=== PATIENT | male | born 1965 | race Caucasian/White ===

== ENCOUNTER 2016-06-23 11:21 | Emergency (ER) ==
[2016-06-23 11:35] VITALS: BP 130/76
[2016-06-23] MEDS ORDERED: DECADRON IM ONE (11:47)
[2016-06-23] MEDS ORDERED: NORFLEX IM ONE (11:48)
--- NOTE | 2016-06-23 11:53 | PROVIDER DOCUMENTATION ---
HPI-Musculoskeletal Pain/Inj - GENERAL Chief Complaint: Back Pain Stated Complaint: BACK PAIN Time Seen by Provider: 06/23/16 11:42 Source: patient - HX OF PRESENT ILLNESS-MUSKULOSKELTAL Nature of Presenting Problem: PATIENT REPORTS ONSET OF LUMBAR BACK PAIN X2 DAYS WHILE AT WORK. 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 PAIN IS NONRADIATING, DENIES ANY BOWEL OR BLADDER INCONTINENCE. DENIES FEVER. DENIES ANY TRAUMATIC INJURY. Quality of Pain: reports: aching, throbbing Severity in ED: moderate Onset/Duration: 2 days ago Timing: still present Modifying Factors: improves with: nothing Any recent injury?: No Locality of Occurance: Work Similar Symptoms Previously?: No Recently seen or treated by another doctor?: No - BACK & NECK PAIN/INJURY Back/Neck Pain Location: reports: lumbar spine Back/Neck Pain Radiation: denies: headache, shoulders, arm(s), Buttocks, Upper Legs, Lower Legs, Feet, Other Context / Method of Injury: reports: twisted Associated Symptoms: reports: denies symptoms History of Chronic Neck or Back Pain?: No Review of Systems - Adult - REVIEW OF SYSTEMS - ADULT Constitutional: reports: no symptoms reported Eyes: reports: no symptoms reported Ears, Nose, Mouth & Throat: reports: no symptoms reported Cardiovascular: reports: no symptoms reported Respiratory: reports: no symptoms reported Gastrointestinal: reports: no symptoms reported Genitourinary: reports: no symptoms reported Musculoskeletal: reports: see HPI Integumentary: reports: no symptoms reported Neurological: reports: no symptoms reported Psychiatric: reports: no symptoms reported Endocrine: reports: no symptoms reported Hematologic/Lymphatic: reports: no symptoms reported Allergic/Immunologic: reports: no symptoms reported Past History - Adult - PAST MEDICAL HISTORY-ADULT Review of Records: reports: Nursing Assessment Review, Medications Reviewed, Social history reviewed & non-contributory. 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 negative: muscle spasm, swelling Extremity: normal range of motion, normal gait Neurologic: grossly normal, no motor/sensory deficits Psych/Mental Status: normal mood/affect, normal thought content, normal thought process, oriented x 3 - Glascow Coma Score Best Eye Response ([place]): (4) open spontaneously Best Verbal Response ([place]): (5) oriented Best Motor Response ([place]): (6) obeys commands Departure - Departure Time of Disposition Order: 11:53 DIAGNOSIS: Lumbago without sciatica Disposition: HOME 01 Certified Medical Emergency: Emergent Condition: Good Additional Instructions: APPLY MOIST HEAT TO LOWER BACK AREA, BUT CAREFUL NOT TO BURN SKIN. TYLENOL OVER THE COUNTER FOR PAIN. MUSCLE RELAXERS MAY CAUSE DROWSINESS, DO NOT DRINK ALCOHOL OR DRIVE WHILE TAKING THIS MEDICATION. Prescriptions: Methocarbamol [Robaxin-750] 750 mg PO TID #15 tablet Forms: Return to School/Parent Work Attestation - Physician/ LALITO Attestation Patient care was provided by Advanced Practice Provider:: Yes Advanced Practice Provider:: Tyson Warren Advanced Practice Provider documentation review:: The Mid-level provider documentation, treatment plan and medical decision making was reviewed by the physician who agrees with all treatment and medical decision making by the MLP.
== END 2016-06-23 12:13 | disposition home or self-care (01) ==
LOC: P.ED 11:21
DX: M54.5 Low back pain (principal); X58.XXXA Exposure to other specified factors, initial encounter
CPT/HCPCS: J2360

== ENCOUNTER 2016-06-24 16:11 | Emergency (ER) ==
--- NOTE | 2016-06-24 17:08 | PROVIDER DOCUMENTATION ---
HPI-Musculoskeletal Pain/Inj - GENERAL Chief Complaint: Extremity Pain Stated Complaint: LEFT LEG PAIN Time Seen by Provider: 06/24/16 16:26 Source: patient - HX OF PRESENT ILLNESS-MUSKULOSKELTAL Nature of Presenting Problem: 50 y/o WM c/o LLE pain x 1 day. Pt states that he was seen yesterday for low back pain and was given steroids and muscle relaxer in the ED with Rx for robaxin. States that back feels better today, but states pain radiating to LLE ; started in posterior thigh, now pain in calf. States some muscle cramping. Reports hx of kidney CA 4 years ago and only has one kidney. Denies any other sxs. States period of inactivity over last week due to back pain. Review of Systems - Adult - REVIEW OF SYSTEMS - ADULT Constitutional: reports: no symptoms reported. denies: chills, fever Eyes: reports: no symptoms reported. denies: blurred vision, double vision Ears, Nose, Mouth & Throat: reports: no symptoms reported. denies: ear pain, nose pain Cardiovascular: reports: no symptoms reported. denies: chest pain, palpitations Respiratory: reports: no symptoms reported. denies: dyspnea on exertion, shortness of breath Gastrointestinal: reports: no symptoms reported. denies: abdominal pain, nausea , vomiting Genitourinary: reports: no symptoms reported. denies: dysuria, frequency Musculoskeletal: reports: see HPI, frequent leg cramps, muscle aches. denies: back pain, joint pain, joint swelling, neck pain Integumentary: reports: no symptoms reported. denies: nail changes, rash Neurological: reports: no symptoms reported. denies: numbness, paresthesia Psychiatric: reports: no symptoms reported Endocrine: reports: no symptoms reported. denies: cold intolerance, heat intolerance Hematologic/Lymphatic: reports: no symptoms reported. denies: easy bruising, prolonged bleeding Allergic/Immunologic: reports: no symptoms reported All Other Systems: Reviewed and Negative Past History - Adult - PAST MEDICAL HISTORY-ADULT Review of Records: reports: Nursing Assessment Review, Medications Reviewed Genitourinary: reports: cancer Endocrine/Immune: reports: Diabetes (DIET CONTROLLED) - PRIOR SURGERIES/PROCEDURES Surgical/Procedure History: reports: other (kidney removal) - SOCIAL HISTORY Smoking: cigarettes, less than 1 pack/day Provider spent 3-5 mins advising pt. on dangers of tobacco.: Discussed manners to quit use, and f/u contacts for add'l counseling. Physical Exam-Injury Related - Physical Exam-Injury Related Initial Vital Signs Reviewed: Yes General Appearance: alert, mild distress, obese Eyes: pink conjunctivae Head, Ears, Nose, Mouth & Throat: normocephalic/atraumatic Neck: normal inspection Respiratory: no pleuratic chest pain, no respiratory distress Cardiovascular: normal peripheral pulses, regular rate, rhythm Peripheral Pulses: dorsalis-pedis (R): 1+, dorsalis-pedis (L): 1+ Extremity: normal range of motion, normal inspection, no pedal edema, normal capillary refill, calf tenderness (L), swelling, tenderness (posterior L thigh, L calf). negative: abnormal NV exam, pulse deficit Integumentary: normal color, warm/dry, blanching. negative: swelling, warm, joseph red Neurologic: negative: aphasia Psych/Mental Status: normal mood/affect, normal thought content, normal thought process, oriented x 3 Progress - PLAN OF CARE/RESULTS Progress/Plan/Lab Results: Discussed pt with Dr. Cruz; agreed that steroid shot was the cause of the leukocytosis. Agreed with d/c plan after reviewing labwork and hx/PE findings. Departure - Departure Time of Disposition Order: 17:59 DIAGNOSIS: Sciatica of left side, Leg pain, left Leukocytosis Qualifiers: Leukocytosis type: unspecified Qualified Code(s): D72.829 - Elevated white blood cell count, unspecified Disposition: HOME 01 Certified Medical Emergency: Emergent Condition: Stable Additional Instructions: Take medications as directed. Drink plenty of fluids. Follow up with occ therapist for further management of kidney function. ED Follow Up Instructions: You have been treated by a care provider in the Emergency Department. These instructions are being provided to you so you can have an understanding of how to care for yourself upon discharge. Upon discharge from the Emergency Department, you are responsible for making arrangements for follow-up care by a physician of your choice. Take all prescribed medications as directed. Return to the Emergency Department immediately for any new or worsening symptoms. You may call the Physician Referral phone number at [phone] to obtain a list of Physicians who are taking new patients. Prescriptions: Sulfamethoxazole/Trimethoprim [Bactrim Ds Tablet] 1 each PO BID #14 tablet Gabapentin [Neurontin] 300 mg PO TID #60 capsule Acetaminophen [Tylenol] 500 mg PO Q6H PRN PRN #30 tablet PRN Reason: Pain Referrals: None,PCP [Primary Care Provider] - NARAYAN TIJERINA [NON-STAFF] - Attestation - Physician/ LALITO Attestation Patient care was provided by Advanced Practice Provider:: Yes Advanced Practice Provider:: Josefa Rudolph Advanced Practice Provider documentation review:: The Mid-level provider documentation, treatment plan and medical decision making was reviewed by the physician who agrees with all treatment and medical decision making by the MLP.
[2016-06-24 17:22] LABS: MANUAL DIFF NEEDED? NO
[2016-06-24 17:25] LABS: BASO% 0.2 % (0.0-0.8); EOS# 0.14 X1000 (0.0-0.7); EOS% 0.9 % (0.0-10.0); HEMATOCRIT 43.7 % (42.0-52.0); HEMOGLOBIN 14.8 g/dL (14.0-18.0); IMM GRAN# 0.07 X1000 (0.0-0.04); IMM GRAN% 0.4 % (0.0-0.5); LYMPH# 3.05 X1000 (1.2-3.4); LYMPH% 18.7 % (20.5-51.1); MCH 30.5 PG (27-31); MCHC 33.9 g/dL (33-37); MCV 90.1 FL (81-99); MONO# 1.09 X1000 (0.11-0.59); MONO% 6.7 % (1.7-9.3); MPV 10.8 FL (7.4-10.4); NEUT% 73.1 % (42.2-75.2); PLT 249 X1000 (130-400); RBC 4.85 XMIL (4.7-6.1)
[2016-06-24 17:51] LABS: ALBUMIN 3.8 g/dL (3.5-5.0); CALCIUM 8.8 mg/dL (8.8-10.2); POTASSIUM 3.8 mmol/L (3.5-5.1); TOTAL BILIRUBIN 0.14 mg/dL (0.20-1.00); TOTAL PROTEIN 7.2 g/dL (6.3-8.3)
[2016-06-24 18:15] VITALS: BP 142/80
== END 2016-06-24 18:17 | disposition home or self-care (01) ==
LOC: ED 16:11
DX: M54.32 Sciatica, left side (principal); D72.829 Elevated white blood cell count, unspecified; M79.662 Pain in left lower leg; M79.1 Myalgia; Z85.9 Personal history of malignant neoplasm, unspecified; E11.9 Type 2 diabetes mellitus without complications; F17.210 Nicotine dependence, cigarettes, uncomplicated; Z71.6 Tobacco abuse counseling; Z79.899 Other long term (current) drug therapy
CPT/HCPCS: 80053; 85025; 85379; 99283